=== PATIENT | female | born 1985 | race American Indian/Alaskan Native ===

== ENCOUNTER 2016-10-13 07:42 | Emergency (ER) | payer MEDICAID, OTHER ==
[2016-10-13 07:43] VITALS: BMI 26.3
[2016-10-13 07:57] VITALS: BP 120/73; PULSE 89; RESP 16; TEMP 98.7; O2SAT 100
[2016-10-13] MEDS ORDERED: Sodium Chloride 0.9% 1,000 ML IV STA (08:43)
--- NOTE | 2016-10-13 08:49 | ED PDOC ---
Arrival/HPI - General Chief Complaint: GI Problem Time Seen by Provider: 10/13/16 08:39 Historian: Patient - History of Present Illness Narrative History of Present Illness (Text): 10/13/16 08:38 Devin Solis is a 31 year old female, whose past medical history includes appendicitis and a , who presents to the emergency department complaining of diarrhea with associated cramping pain for 2 days and vomiting since this morning. 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 Patient endorses that she is an occasional drinker and smoker; her last menstrual cycle was the beginning of last month. Patient denies any other complaint at this time. PMD: none Time/Duration: < week (2 Days) Symptom Onset: Gradual Symptom Course: Unchanged Severity Level: Mild Activities at Onset: Light Context: Home Associated Symptoms (Text): 10/13/16 08:55 2 day history of mild crampy intermittent abdominal pain with multiple episodes of severe diarrhea. This morning she developed some nausea and vomiting. Sick contacts at work. No travel. No fever or chills. No genitourinary symptoms. Past Medical History - Provider Review Nursing Documentation Reviewed: Yes - Infectious Disease Hx of Infectious Diseases: None - Gastrointestinal Hx Hemorrhoids: Yes - Psychiatric Hx Substance Use: No - Surgical History Hx Appendectomy: Yes Hx Section: Yes - Anesthesia Hx Anesthesia: Yes Hx Anesthesia Reactions: No Hx Malignant Hyperthermia: No - Suicidal Assessment Feels Threatened In Home Enviroment: No Family/Social History - Physician Review Nursing Documentation Reviewed: Yes Family/Social History: No Known Family HX Smoking Status: Current Some Days Smoker Hx Alcohol Use: Yes Frequency of alcohol use: Socially Hx Substance Use: No Allergies/Home Meds Allergies/Adverse Reactions: Allergies No Known Allergies Allergy (Verified 10/13/16 07:57) Review of Systems - Physician Review All systems were reviewed & negative as marked: Yes - Review of Systems Constitutional: absent: Fevers, Night Sweats Eyes: absent: Vision Changes ENT: absent: Hearing Changes Respiratory: absent: SOB Cardiovascular: absent: Chest Pain Gastrointestinal: Abdominal Pain (Cramping Pain), Diarrhea, Vomiting Genitourinary Female: absent: Dysuria, Frequency, Hematuria, Urine Output Changes, Vaginal Bleeding, Vaginal Discharge Musculoskeletal: absent: Back Pain, Neck Pain Skin: absent: Rash Neurological: absent: Headache, Dizziness Endocrine: absent: Diaphoresis Hemo/Lymphatic: absent: Adenopathy Psychiatric: absent: Depression Physical Exam Vital Signs Reviewed: Yes Vital Signs Temp Pulse Resp BP Pulse Ox 10/13/16 07:52 98.7 F 89 16 120/73 100 Temperature: Afebrile Blood Pressure: Normal Pulse: Regular Respiratory Rate: Normal Appearance: Positive for: Well-Appearing, Non-Toxic, Comfortable Pain Distress: None Mental Status: Positive for: Alert and Oriented X 3 - Systems Exam Head: Present: Atraumatic, Normocephalic Pupils: Present: PERRL Extroacular Muscles: Present: EOMI Conjunctiva: Present: Normal Mouth: Present: Moist Mucous Membranes Pharnyx: No: ERYTHEMA, EXUDATE, TONSILS ENLARGED Neck: Present: Normal Range of Motion Respiratory/Chest: Present: Clear to Auscultation, Good Air Exchange. No: Respiratory Distress, Accessory Muscle Use Cardiovascular: Present: Regular Rate and Rhythm, Normal S1, S2. No: Murmurs Abdomen: Present: Normal Bowel Sounds. No: Tenderness, Distention, Peritoneal Signs, Rebound, Guarding Back: Present: Normal Inspection Upper Extremity: Present: Normal Inspection. No: Cyanosis, Edema Lower Extremity: Present: Normal Inspection. No: Edema Neurological: Present: GCS=15, CN II-XII Intact, Speech Normal, Motor Func Grossly Intact Skin: Present: Warm, Dry, Normal Color. No: Rashes Psychiatric: Present: Alert, Oriented x 3, Normal Insight, Normal Concentration Medical Decision Making ED Course and Treatment: 10/13/16 08:38 Impression: 31 year old female complaining of diarrhea with cramping pain for two days and vomiting since this morning. Plan: -- Urinalysis -- Labs -- Zofran, IV Fluids -- Reassess and disposition Prior Visits: Notes and results from previous visits were reviewed. Patient last seen in the ED on 05/17/15 for nausea, vomiting, and headache for 3-4 days. Patient was discharge home. Progress Notes: 10/13/16 09:41 Symptoms improved. - Lab Interpretations Lab Results: 10/13/16 08:59 10/13/16 08:59 Lab Results 10/13/16 08:59: WBC 9.3, RBC 5.12, Hgb 11.8 L, Hct 35.2 L, MCV 68.8 L, MCH 23.0 L, MCHC 33.5, RDW 16.0 H, Plt Count 288, MPV 10.8, Gran % 55.8, Lymph % (Auto) 34.9, [place] % (Auto) 7.6 H, Eos % (Auto) 1.5, Baso % (Auto) 0.2, Gran # 5.18, Lymph # 3.2, [place] # 0.7 H, Eos # 0.1, Baso # 0.02, Sodium 140, Potassium 3.7, Chloride 106, Carbon Dioxide 25, Anion Gap 13, BUN 15, Creatinine 0.8, Est GFR ( Amer) > 60, Est GFR (Non-Af Amer) > 60, Random Glucose 102, Calcium 8.8 , Total Bilirubin 0.5, AST 25, ALT 27, Alkaline Phosphatase 53, Total Protein 9.1 H, Albumin 4.3, Globulin 4.8, Albumin/Globulin Ratio 0.9 L, Lipase 117 10/13/16 08:52: Urine Color Yellow, Urine Appearance Sl cloudy, Urine pH 6.0, Ur Specific [place] >= 1.030, Urine Protein Trace H, Urine Glucose (UA) Negative , Urine Ketones Trace H, Urine Blood Moderate H, Urine Nitrate Negative, Urine Bilirubin Negative, Urine Urobilinogen 1.0 H, Ur Leukocyte Esterase Negative, Urine RBC 1 - 3, Urine WBC 0 - 2, Ur Epithelial Cells 1 - 3, Urine Bacteria Mod - Medication Orders Current Medication Orders: Sodium Chloride (Sodium Chloride 0.9%) 1,000 mls @ 1,000 mls/hr IV .Q1H STA Stop: 10/13/16 09:42 Last Admin: 10/13/16 09:12 Dose: 1,000 MLS/HR eMAR Start Stop Document 10/13/16 09:12 JOL (Rec: 10/13/16 09:12 JOL [id number]) Intravenous Solution Start Date 10/13/16 Start Time 09:12 End Date 10/13/16 End time 10:12 Total Infusion Time 60 Discontinued Medications Ondansetron HCl (Zofran Inj) 4 mg IVP STAT STA Stop: 10/13/16 08:44 Last Admin: 10/13/16 09:12 Dose: 4 MG IVP Administration Document 10/13/16 09:12 JOL (Rec: 10/13/16 09:12 NILAY [id number]) Charges for Administration # of IVP Administrations 1 - Scribe Statement The provider has reviewed the documentation as recorded by the Scribe Danielle Arrieta Provider Scribe Attestation: All medical record entries made by the Scribe were at my direction and personally dictated by me. I have reviewed the chart and agree that the record accurately reflects my personal performance of the history, physical exam, medical decision making, and the department course for this patient. I have also personally directed, reviewed, and agree with the discharge instructions and disposition. Disposition/Present on Arrival - Present on Arrival Any Indicators Present on Arrival: No History of DVT/PE: No History of Uncontrolled Diabetes: No Urinary Catheter: No History of Decub. Ulcer: No History Surgical Site Infection Following: None - Disposition Have Diagnosis and Disposition been Completed?: Yes Diagnosis: Gastroenteritis, Nausea vomiting and diarrhea Disposition: HOME/ ROUTINE Disposition Time: 09:42 Patient Plan: Discharge Condition: IMPROVED Discharge Instructions (ExitCare): Dehydration (ED), Gastroenteritis (ED), Acute Nausea and Vomiting (ED), Acute Diarrhea (ED) Additional Instructions: Clear liquids for 24 hours. Follow-up with PMD. Follow up in ER as needed. Symptomatic treatment.. Prescriptions: Ondansetron [Zofran Odt] 4 mg SL Q6 #20 odt Forms: WORK NOTE
[2016-10-13 08:58] LABS: URINE BILIRUBIN NEGATIVE (NEGATIVE); URINE BLOOD MODERATE (NEGATIVE); URINE GLUCOSE (UA) NEGATIVE (NEGATIVE); URINE KETONE TRACE mg/dL (NEGATIVE); URINE LEUKOCYTE ESTERASE NEGATIVE Leu/uL (NEGATIVE); URINE PROTEIN TRACE mg/dL (<30 mg/dL)
[2016-10-13 08:59] LABS: URINE APPEARANCE SL CLOUDY (CLEAR); URINE COLOR YELLOW (YELLOW)
[2016-10-13 09:00] LABS: ADD MANUAL DIFF? NO
[2016-10-13 09:04] LABS: BASO # 0.02 K/mm3 (0.0-2.0); BASO % 0.2 % (0.0-3.0); EOS # 0.1 (0.0-0.7); EOS % 1.5 % (1.5-5.0); GRAN # 5.18 (1.4-6.5); GRAN % 55.8 % (50.0-68.0); HEMATOCRIT 35.2 % (36.0-48.0); LYMPH # 3.2 (1.2-3.4); LYMPH % 34.9 % (22.0-35.0); MEAN CELL VOLUME 68.8 fL (80.0-105.0); MEAN CORPUSCULAR HGB CONC 33.5 g/dl (31.0-37.0); MEAN PLATELET VOLUME 10.8 fl (7.0-11.0); MONO # 0.7 (0.1-0.6); MONO % 7.6 % (1.0-6.0); PLATELET COUNT 288 10^3/uL (120.0-450.0); WHITE BLOOD COUNT 9.3 10^3/ul (4.5-11.0)
[2016-10-13 09:08] LABS: URINE WBC 0 - 2 /hpf (0-6)
[2016-10-13 09:09] LABS: URINE BACTERIA MOD (NEG)
[2016-10-13 09:14] LABS: ALB/GLOB RATIO 0.9 (1.1-1.8); ALKALINE PHOSPHATASE 53 U/L (38-133); ALT/SGPT 27 U/L (7-56); AST/SGOT 25 U/L (15-39); BILIRUBIN,TOTAL 0.5 mg/dL (0.2-1.3); BLOOD UREA NITROGEN 15 mg/dL (7-21); CALCIUM 8.8 mg/dL (8.4-10.5); CARBON DIOXIDE 25 mmol/L (21-33); CHLORIDE 106 mmol/L (98-107); GFR AFRICAN-AMERICAN > 60; GLUCOSE,RANDOM 102 mg/dL (70-110); LIPASE 117 U/L (23-300); POTASSIUM 3.7 mmol/L (3.6-5.0); SODIUM 140 mmol/L (132-148); TOTAL PROTEIN 9.1 g/dL (5.8-8.3)
== END 2016-10-13 10:01 | disposition home or self-care (01) ==
LOC: ED 07:42
DX: K52.9 Noninfective gastroenteritis and colitis, unspecified (principal)
CPT/HCPCS: 80053; 81001; 83690; 85025; 96361; 96374; 99283; J2405; J7040

== ENCOUNTER 2017-02-25 06:55 | Emergency (ER) | payer SELFPAY ==
[2017-02-25 07:02] VITALS: BMI 25.0
[2017-02-25 07:08] VITALS: BP 131/83; PULSE 89; RESP 17; TEMP 98.8; O2SAT 100
--- NOTE | 2017-02-25 07:32 | ED PDOC ---
Arrival/HPI - General Chief Complaint: Female Genitourinary Time Seen by Provider: 02/25/17 07:25 Historian: Patient - History of Present Illness Narrative History of Present Illness (Text): 02/25/17 07: A 31 year old female patient with no known past medical history, presents to the emergency department complaining of a left sided vaginal cyst she has had for the past few weeks. She states that the cyst started draining a few days ago. Patient notes that the pain has improved. Patient denies headache, dizziness, fevers, chills, chest pain, shortness of breath, cough, abdominal pain, nausea, vomiting, diarrhea, or any other complaint. Time/Duration: Other (Few Days) Symptom Onset: Sudden Symptom Course: Unchanged Activities at Onset: Rest, Light Context: Home Past Medical History - Provider Review Nursing Documentation Reviewed: Yes - Infectious Disease Hx of Infectious Diseases: None - Gastrointestinal Hx Hemorrhoids: Yes - Psychiatric Hx Substance Use: No - Surgical History Hx Appendectomy: Yes Hx Section: Yes - Anesthesia Hx Anesthesia: Yes Hx Anesthesia Reactions: No Hx Malignant Hyperthermia: No - Suicidal Assessment Feels Threatened In Home Enviroment: No Family/Social History - Physician Review Nursing Documentation Reviewed: Yes Family/Social History: Unknown Family HX Smoking Status: Current Some Days Smoker Hx Alcohol Use: Yes Hx Substance Use: No Allergies/Home Meds Allergies/Adverse Reactions: Allergies No Known Allergies Allergy (Verified 10/13/16 07:57) Physical Exam - Physical Exam Narrative Physical Exam (Text): - Review of Systems Constitutional: Normal. absent: Fatigue, Weight Change, Fevers Eyes: Normal ENT: Normal Respiratory: Normal absent: SOB, Cough, Sputum Cardiovascular: Normal absent: Chest pain, Palpitations, Syncope Gastrointestinal: Normal absent: Abdominal pain, Diarrhea, Nausea, Vomiting Genitourinary: (+) Left sided vaginal cyst. absent: Dysuria, Frequency, Hematuria Musculoskeletal: Normal. absent: Arthralgias, Back Pain, Neck Pain Skin: Normal Neurological: Normal absent: Focal Weakness Endocrine: Normal Hemo/Lymphatic: Normal Psychiatric: Normal - Physical exam Patient appears age appropriate, speaking full sentences without difficulty - Systems Exam Head: Present: Atraumatic, Normocephalic Pupils: Present: PERRL Extraocular Muscles: Present: EOMI Conjunctiva: Present: Normal Mouth: Present: Moist Mucous Membranes Neck: Present: Normal Range of Motion. No: MIDLINE TENDERNESS, Paraspinal Tenderness Respiratory/Chest: Present: Clear to Auscultation, Good Air Exchange. No: Respiratory Distress, Accessory Muscle Use, Tachypnic Cardiovascular: Present: Regular Rate and Rhythm, Normal S1, S2, Peripheral Pulses Present. No: Murmurs Abdomen: Present: Normal Bowel Sounds, No: Tenderness, Peritoneal Signs, Rebound, Guarding, Distention Genitourinary: Draining left bartholin cyst. No cellulitis in the surrounding region. Otherwise normal appearing external genitalia. Scribe Jyotsna present as female utility bagger. Back: Present: Normal Inspection. No: Midline Tenderness, Paraspinal Tenderness Upper Extremity: Present: Normal Inspection. No: Cyanosis, Edema Lower Extremity: Present: Normal Inspection. No: Edema Neurological: Present: GCS=15, Speech Normal, cranial nerves II through XII fully intact with no cerebellar abnormality, neuro-sensory fully intact. No focal neurological deficits. Skin: Present: Warm, Dry, Normal Color. No: Rashes Lymphatic: Present: OX3, NI, NC Psychiatric: Present: Alert, Oriented x 3, Normal Insight, Normal Concentration Vital Signs Reviewed: Yes Vital Signs Temp Pulse Resp BP Pulse Ox 02/25/17 07:04 98.8 F 89 17 131/83 100 Temperature: Afebrile Blood Pressure: Normal Pulse: Regular Respiratory Rate: Normal Appearance: Positive for: Well-Appearing, Non-Toxic, Comfortable Pain Distress: None Mental Status: Positive for: Alert and Oriented X 3 Medical Decision Making ED Course and Treatment: 02/25/17 07:28 Impression: A 31 year old female with a complaint of a left vaginal cyst. On exam, draining left bartholin cyst. Progress Notes: 7:26: Patient in no distress. Discussed patient options of I&D vs. sitz bath , and decided she will proceed with the less invasive measures. Instructed to f/u with DIRECTOR OF HEALTH CARE MARKETING and to return to the ER right away for new or worsening symptoms. Pt states she understands to return to the ER right away for new or worsening symptoms or for inability to f/u with PMD or specialist as instructed. Patient states that she fully agrees with and understands discharge instructions. States that she agrees with the plan and disposition. Verbalized and repeated discharge instructions and plan. I have given the patient opportunity to ask any additional questions. - Scribe Statement The provider has reviewed the documentation as recorded by the Scribe Jyotsna Montiel Provider Scribe Attestation: All medical record entries made by the Scribe were at my direction and personally dictated by me. I have reviewed the chart and agree that the record accurately reflects my personal performance of the history, physical exam, medical decision making, and the department course for this patient. I have also personally directed, reviewed, and agree with the discharge instructions and disposition. Disposition/Present on Arrival - Present on Arrival Any Indicators Present on Arrival: No History of DVT/PE: No History of Uncontrolled Diabetes: No Urinary Catheter: No History of Decub. Ulcer: No History Surgical Site Infection Following: None - Disposition Have Diagnosis and Disposition been Completed?: Yes Diagnosis: Bartholin cyst Disposition: HOME/ ROUTINE Disposition Time: 07:26 Patient Plan: Discharge Condition: GOOD Discharge Instructions (ExitCare): Bartholin Cyst (ED), Sitz Bath (GEN) Additional Instructions: PLEASE RETURN TO THE EMERGENCY DEPARTMENT FOR NEW OR WORSENING SYMPTOMS. RETURN RIGHT AWAY IF YOU CANNOT FOLLOW UP WITH YOUR PRIMARY CARE DOCTOR, CLINIC, OR SPECIALIST IN 1-2 DAYS. Prescriptions: Acetaminophen [Tylenol Extra Strength] 500 mg PO Q6 PRN #15 tablet PRN Reason: Pain, Moderate (4-7) Ibuprofen [Motrin] 600 mg PO Q8 PRN #12 tab PRN Reason: Pain, Moderate (4-7) Referrals: Piper Hoff MD [Staff Provider] - Follow up with primary Forms: [employer] (Nepali)
--- NOTE | 2017-02-25 07:36 | ED PDOC ---
Arrival/HPI - General Chief Complaint: Female Genitourinary Time Seen by Provider: 02/25/17 07:25 Historian: Patient - History of Present Illness Narrative History of Present Illness (Text): 02/25/17 07:16 A 31 year old female patient with no known past medical history, presents to the emergency department complaining of a left sided vaginal cyst she has had for the past few weeks. She states that the cyst started draining a few days ago. Patient notes that the pain has improved. Patient denies headache, dizziness, fevers, chills, chest pain, shortness of breath, cough, abdominal pain, nausea, vomiting, diarrhea, or any other complaint. Time/Duration: Other (Few Days) Symptom Onset: Sudden Symptom Course: Unchanged Activities at Onset: Rest, Light Context: Home Past Medical History - Provider Review Nursing Documentation Reviewed: Yes - Infectious Disease Hx of Infectious Diseases: None - Gastrointestinal Hx Hemorrhoids: Yes - Psychiatric Hx Substance Use: No - Surgical History Hx Appendectomy: Yes Hx Section: Yes - Anesthesia Hx Anesthesia: Yes Hx Anesthesia Reactions: No Hx Malignant Hyperthermia: No - Suicidal Assessment Feels Threatened In Home Enviroment: No Family/Social History - Physician Review Nursing Documentation Reviewed: Yes Family/Social History: No Known Family HX Smoking Status: Current Some Days Smoker Hx Alcohol Use: Yes Hx Substance Use: No Allergies/Home Meds Allergies/Adverse Reactions: Allergies No Known Allergies Allergy (Verified 10/13/16 07:57) Physical Exam - Physical Exam Narrative Physical Exam (Text): - Review of Systems Constitutional: Normal. absent: Fatigue, Weight Change, Fevers Eyes: Normal ENT: Normal Respiratory: Normal absent: SOB, Cough, Sputum Cardiovascular: Normal absent: Chest pain, Palpitations, Syncope Gastrointestinal: Normal absent: Abdominal pain, Diarrhea, Nausea, Vomiting Genitourinary: (+) Left sided vaginal cyst. absent: Dysuria, Frequency, Hematuria Musculoskeletal: Normal. absent: Arthralgias, Back Pain, Neck Pain Skin: Normal Neurological: Normal absent: Focal Weakness Endocrine: Normal Hemo/Lymphatic: Normal Psychiatric: Normal - Physical exam Patient appears age appropriate, speaking full sentences without difficulty - Systems Exam Head: Present: Atraumatic, Normocephalic Pupils: Present: PERRL Extraocular Muscles: Present: EOMI Conjunctiva: Present: Normal Mouth: Present: Moist Mucous Membranes Neck: Present: Normal Range of Motion. No: MIDLINE TENDERNESS, Paraspinal Tenderness Respiratory/Chest: Present: Clear to Auscultation, Good Air Exchange. No: Respiratory Distress, Accessory Muscle Use, Tachypnic Cardiovascular: Present: Regular Rate and Rhythm, Normal S1, S2, Peripheral Pulses Present. No: Murmurs Abdomen: Present: Normal Bowel Sounds, No: Tenderness, Peritoneal Signs, Rebound, Guarding, Distention Back: Present: Normal Inspection. No: Midline Tenderness, Paraspinal Tenderness Upper Extremity: Present: Normal Inspection. No: Cyanosis, Edema Lower Extremity: Present: Normal Inspection. No: Edema Neurological: Present: GCS=15, Speech Normal, cranial nerves II through XII fully intact with no cerebellar abnormality, neuro-sensory fully intact. No focal neurological deficits. Skin: Present: Warm, Dry, Normal Color. No: Rashes Lymphatic: Present: OX3, NI, NC Psychiatric: Present: Alert, Oriented x 3, Normal Insight, Normal Concentration Vital Signs Temp Pulse Resp BP Pulse Ox 02/25/17 07:04 98.8 F 89 17 131/83 100 Disposition/Present on Arrival - Present on Arrival History of DVT/PE: No History of Uncontrolled Diabetes: No Urinary Catheter: No History of Decub. Ulcer: No History Surgical Site Infection Following: None - Disposition Diagnosis: Bartholin cyst Disposition: HOME/ ROUTINE Condition: GOOD Discharge Instructions (ExitCare): Bartholin Cyst (ED), Sitz Bath (GEN) Additional Instructions: PLEASE RETURN TO THE EMERGENCY DEPARTMENT FOR NEW OR WORSENING SYMPTOMS. RETURN RIGHT AWAY IF YOU CANNOT FOLLOW UP WITH YOUR PRIMARY CARE DOCTOR, CLINIC, OR SPECIALIST IN 1-2 DAYS. Prescriptions: Acetaminophen [Tylenol Extra Strength] 500 mg PO Q6 PRN #15 tablet PRN Reason: Pain, Moderate (4-7) Ibuprofen [Motrin] 600 mg PO Q8 PRN #12 tab PRN Reason: Pain, Moderate (4-7) Referrals: Piper Hoff MD [Staff Provider] - Follow up with primary Forms: [employer] (Haitian)
== END 2017-02-25 07:38 | disposition home or self-care (01) ==
LOC: ED 06:55
DX: N75.0 Cyst of Bartholin's gland (principal)

== ENCOUNTER 2017-06-03 23:00 | Emergency (ER) | payer SELFPAY ==
[2017-06-03 23:01] VITALS: BMI 25.0
[2017-06-03 23:11] VITALS: O2SAT 100
[2017-06-03] MEDS ORDERED: Sodium Chloride 0.9% 1,000 ML IV STA (23:30)
[2017-06-03] MEDS ORDERED: Morphine 2 mg/ml ISec IVP STA (23:30)
--- NOTE | 2017-06-03 23:31 | ED PDOC ---
Arrival/HPI - General Chief Complaint: Abdominal Pain Time Seen by Provider: 06/03/17 23:05 Historian: Patient - History of Present Illness Narrative History of Present Illness (Text): 06/03/17 23:25 Devin Solis is a 31 year old female who presents to the Emergency department complaining of left lower abdominal pain after eating cheese steak 1 hour prior to arrival. Patient denies any fever, chills, chest pain, shortness of breath, nausea, vomiting, diarrhea, urinary symptoms, back pain, neck pain, headache, dizziness, or any other complaints.No Vaginal discharge/LMP- ~6 weeks ago. Time/Duration: 1 hour, Other (tonight) Symptom Onset: Gradual Symptom Course: Unchanged Activities at Onset: Light, Eating Context: Home Past Medical History - Provider Review Nursing Documentation Reviewed: Yes - Infectious Disease Hx of Infectious Diseases: None - Gastrointestinal Hx Hemorrhoids: Yes - Psychiatric Hx Substance Use: No - Surgical History Hx Appendectomy: Yes Hx Section: Yes - Anesthesia Hx Anesthesia: Yes Hx Anesthesia Reactions: No Hx Malignant Hyperthermia: No - Suicidal Assessment Feels Threatened In Home Enviroment: No Family/Social History - Physician Review Nursing Documentation Reviewed: Yes Family/Social History: Unknown Family HX Smoking Status: Never Smoked Hx Alcohol Use: Yes Frequency of alcohol use: Socially Hx Substance Use: No Allergies/Home Meds Allergies/Adverse Reactions: Allergies No Known Allergies Allergy (Verified 06/04/17 06:00) Home Medications: Home Meds Medication Instructions Recorded Confirmed No Known Home Med 06/03/17 06/04/17 Review of Systems - Physician Review All systems were reviewed & negative as marked: Yes - Review of Systems Constitutional: Normal. absent: Fevers Eyes: Normal ENT: Normal Respiratory: Normal. absent: SOB, Cough Cardiovascular: Normal. absent: Chest Pain Gastrointestinal: Abdominal Pain. absent: Diarrhea, Nausea, Vomiting Genitourinary Female: Normal. absent: Dysuria, Frequency, Hematuria, Urine Output Changes Musculoskeletal: Normal. absent: Back Pain, Neck Pain Skin: Normal. absent: Rash Neurological: Normal. absent: Headache, Dizziness Endocrine: Normal Hemo/Lymphatic: Normal Psychiatric: Normal Physical Exam Vital Signs Reviewed: Yes Vital Signs Temp Pulse Resp BP Pulse Ox 06/04/17 05:19 98.0 F 80 18 138/66 100 06/04/17 03:29 98.5 F 82 17 125/66 100 06/04/17 02:51 98.3 F 78 18 115/66 100 06/03/17 23:10 98.0 F 88 18 122/73 100 Temperature: Afebrile Blood Pressure: Normal Pulse: Regular Respiratory Rate: Normal Appearance: Positive for: Well-Appearing, Non-Toxic, Comfortable Pain Distress: None Mental Status: Positive for: Alert and Oriented X 3 - Systems Exam Head: Present: Atraumatic, Normocephalic Pupils: Present: PERRL Extroacular Muscles: Present: EOMI Conjunctiva: Present: Normal Mouth: Present: Moist Mucous Membranes Neck: Present: Normal Range of Motion Respiratory/Chest: Present: Clear to Auscultation, Good Air Exchange. No: Respiratory Distress, Accessory Muscle Use Cardiovascular: Present: Regular Rate and Rhythm, Normal S1, S2. No: Murmurs Abdomen: Present: Tenderness (LLQ abdominal tenderness), Normal Bowel Sounds. No: Distention, Peritoneal Signs Back: Present: Normal Inspection Upper Extremity: Present: Normal Inspection. No: Cyanosis, Edema Lower Extremity: Present: Normal Inspection. No: Edema Neurological: Present: GCS=15, CN II-XII Intact, Speech Normal Skin: Present: Warm, Dry, Normal Color. No: Rashes Psychiatric: Present: Alert, Oriented x 3, Normal Insight, Normal Concentration Medical Decision Making ED Course and Treatment: 06/03/17 23:25 Impression: 31 year old female complaining of left lower abdominal pain after eating 1 hour prior to arrival. Plan: -- Labs, lipase -- Urinalysis -- IV fluids -- Pepcid -- Reassess and disposition Prior Visits: Notes and results from previous visits were reviewed. On 02/25/2017, pt was seen in the Emergency department for left-sided vaginal cyst. Pt was d/c home. Progress Notes: 06/04/17 01:16 Positive , Beta-HCG, blood type and screen, Transvaginal US ordered. Pt reports she is G3 P:1 A:1 06/04/17 03:21 Transvaginal US shows: Gestation: No intrauterine gestational sac. Uterus/cervix: Endometrium: Up to 2.9 cm in thickness. Closed cervix. Ovaries: RIGHT ovary: Normal. LEFT ovary: Normal. 3.1 x 3.3 x 2.2 cm lesion within LEFT adnexal region. Free fluid: Small complex free fluid within pelvis. IMPRESSION: 1. No intrauterine gestation. DDX: Early IUP, missed , ectopic . 2. LEFT adnexal lesion, indeterminate. Ectopic not excluded. 3. Small complex free fluid, likely hemorrhage. 06/04/17 03:29 Case discussed with SG Norton cathodic protection technician, who is aware and agrees with plan. States pt can be transferred to [facility]. [facility] [place] ER paged. 06/04/17 03:[address] Timmons, ER attending at [facility], and SG Jiang cathodic protection technician at [facility]. Pt to be transferred to [facility]. Transfer (Adult): Based upon the information available at the time of transfer, the medical benefits reasonably expected from the provision of medical treatment at [facility] outweigh the increased risk to the patient for transfer from this facility. I have described the inherent risks and benefits of the transfer to the patient, and patient agrees to transfer. Further medical treatment to be provided at the receiving facility. At the time of transfer, copies of all medical records sent which related to the emergency condition for which the individual presented. These records include observations of signs or symptoms, preliminary clinical impression, treatment provided, results of any completed test and an informed written consent to the transfer. - Lab Interpretations Lab Results: 06/04/17 00:10 06/04/17 00:10 Lab Results 06/04/17 01:50: Blood Type Confirm A POSITIVE 06/04/17 01:31: Blood Type A POSITIVE, Antibody Screen Negative, BBK History Checked No verified bt 06/04/17 01:31: Beta HCG, Quant 1187.60 H 06/04/17 00:50: Urine Color Yellow, Urine Appearance Sl cloudy, Urine pH 6.0, Ur Specific [place] >= 1.030, Urine Protein Trace H, Urine Glucose (UA) Negative , Urine Ketones Trace H, Urine Blood Moderate H, Urine Nitrate Negative, Urine Bilirubin Negative, Urine Urobilinogen 1.0 H, Ur Leukocyte Esterase Negative, Urine RBC 1 - 3, Urine WBC 0 - 2, Ur Epithelial Cells 3 - 4, Urine Bacteria Occ , Urine HCG, Qual Positive 06/04/17 00:10: WBC 11.8 H D, RBC 4.84, Hgb 11.0 L, Hct 32.9 L, MCV 68.0 L, MCH 22.7 L, MCHC 33.4, RDW 16.5 H, Plt Count 267, MPV 10.3 06/04/17 00:10: Sodium 137, Potassium 3.6, Chloride 107, Carbon Dioxide 22, Anion Gap 12, BUN 16, Creatinine 0.7, Est GFR ( Amer) > 60, Est GFR (Non- Af Amer) > 60, Random Glucose 99, Calcium 9.4, Total Bilirubin 1.2, AST 30, ALT 29, Alkaline Phosphatase 48, Total Protein 8.3, Albumin 4.3, Globulin 4.1, Albumin/Globulin Ratio 1.1, Lipase 82 I have reviewed the lab results: Yes - RAD Interpretation Radiology Orders: 06/04/17 01:17 OB TRANSVAGINAL [US] Stat Spa Attendant: Radiologist - Medication Orders Current Medication Orders: Discontinued Medications Famotidine (Pepcid) 20 mg IVP STAT STA Stop: 06/03/17 23:31 Last Admin: 06/04/17 00:16 Dose: 20 mg IVP Administration Document 06/04/17 00:16 ALEKSEY (Rec: 06/04/17 00:16 ALEKSEY [id number]) Charges for Administration # of IVP Administrations 1 Sodium Chloride (Sodium Chloride 0.9%) 1,000 mls @ 999 mls/hr IV .Q1H1M STA Stop: 06/04/17 00:30 Last Admin: 06/04/17 00:16 Dose: 999 mls/hr eMAR Start Stop Document 06/04/17 00:16 ALEKSEY (Rec: 06/04/17 00:16 ALEKSEY [id number]) Intravenous Solution Start Date 06/04/17 Start Time 00:10 - Scribe Statement The provider has reviewed the documentation as recorded by the Ranjith Chiang Provider Scribe Attestation: All medical record entries made by the Scribgrayson were at my direction and personally dictated by me. I have reviewed the chart and agree that the record accurately reflects my personal performance of the history, physical exam, medical decision making, and the department course for this patient. I have also personally directed, reviewed, and agree with the discharge instructions and disposition. Disposition/Present on Arrival - Present on Arrival Any Indicators Present on Arrival: No History of DVT/PE: No History of Uncontrolled Diabetes: No Urinary Catheter: No History of Decub. Ulcer: No History Surgical Site Infection Following: None - Disposition Have Diagnosis and Disposition been Completed?: Yes Diagnosis: Abdominal pain, Ectopic Disposition: Transfer [facility] Disposition Time: 03:52 Condition: STABLE Referrals: Rosa Costello, [Primary Care Provider] - Follow up with primary Forms: giddy (Maori)
[2017-06-04 00:24] LABS: HEMATOCRIT 32.9 % (36.0-48.0); MEAN CORPUSCULAR HEMOGLOBIN 22.7 pg (25.0-35.0); MEAN CORPUSCULAR HGB CONC 33.4 g/dl (31.0-37.0); MEAN PLATELET VOLUME 10.3 fl (7.0-11.0); RED CELL DISTRIBUTION WIDTH 16.5 % (11.5-14.5); WHITE BLOOD COUNT 11.8 10^3/ul (4.5-11.0)
[2017-06-04 00:47] LABS: ALB/GLOB RATIO 1.1 (1.1-1.8); ALKALINE PHOSPHATASE 48 U/L (38-126); ALT/SGPT 29 U/L (7-56); AST/SGOT 30 U/L (14-36); BILIRUBIN,TOTAL 1.2 mg/dL (0.2-1.3); BLOOD UREA NITROGEN 16 mg/dL (7-21); CALCIUM 9.4 mg/dL (8.4-10.5); CARBON DIOXIDE 22 mmol/L (21-33); CHLORIDE 107 mmol/L (98-107); GFR AFRICAN-AMERICAN > 60; GLUCOSE,RANDOM 99 mg/dL (70-110); LIPASE 82 U/L (23-300); POTASSIUM 3.6 mmol/L (3.6-5.0); SODIUM 137 mmol/L (132-148); TOTAL PROTEIN 8.3 g/dL (5.8-8.3)
[2017-06-04 01:05] LABS: URINE BILIRUBIN NEGATIVE (NEGATIVE); URINE BLOOD MODERATE (NEGATIVE); URINE GLUCOSE (UA) NEGATIVE (NEGATIVE); URINE KETONE TRACE mg/dL (NEGATIVE); URINE LEUKOCYTE ESTERASE NEGATIVE Leu/uL (NEGATIVE); URINE PROTEIN TRACE mg/dL (<30 mg/dL)
[2017-06-04 01:07] LABS: URINE APPEARANCE SL CLOUDY (CLEAR); URINE COLOR YELLOW (YELLOW)
[2017-06-04 01:14] LABS: URINE BACTERIA OCC (NEG); URINE WBC 0 - 2 /hpf (0-6)
--- NOTE | 2017-06-04 03:12 | US ---
EXAM: US First Trimester, Transabdominal CLINICAL HISTORY: 31 years old, female; Pain; complicated by abdominal or pelvic pain; Lower; First trimester; Gestational age or lmp: Unknown TECHNIQUE: Real-time transabdominal obstetrical ultrasound of the maternal pelvis and a first trimester with image documentation. COMPARISON: No relevant prior studies available. FINDINGS: Gestation: No intrauterine gestational sac. Uterus/cervix: Endometrium: Up to 2.9 cm in thickness. Closed cervix. Ovaries: RIGHT ovary: Normal. LEFT ovary: Normal. 3.1 x 3.3 x 2.2 cm lesion within LEFT adnexal region. Free fluid: Small complex free fluid within pelvis. IMPRESSION: 1. No intrauterine gestation. DDX: Early IUP, missed , ectopic . 2. LEFT adnexal lesion, indeterminate. Ectopic not excluded. 3. Small complex free fluid, likely hemorrhage. EXAM: US , Transvaginal CLINICAL HISTORY: 31 years old, female; Pain; complicated by abdominal or pelvic pain; Lower; First trimester; Gestational age or lmp: Unknown TECHNIQUE: Real-time transvaginal obstetrical ultrasound of the maternal pelvis and a first trimester with image documentation. Transvaginal imaging was used for better evaluation of the fetus and adnexa. COMPARISON: No relevant prior studies available. FINDINGS: Gestation: No intrauterine gestational sac. Uterus/cervix: Endometrium: Up to 2.9 cm in thickness. Closed cervix. Ovaries: RIGHT ovary: Normal. LEFT ovary: Normal. 3.1 x 3.3 x 2.2 cm lesion within LEFT adnexal region. Free fluid: Small complex free fluid within pelvis.
[2017-06-04 05:20] VITALS: BP 138/66; PULSE 80; RESP 18; TEMP 98
== END 2017-06-04 05:32 | disposition short-term general hospital (02) ==
LOC: ED 23:00
DX: O00.90 Unspecified ectopic pregnancy without intrauterine pregnancy (principal); R10.30 Lower abdominal pain, unspecified
CPT/HCPCS: 76817; 80053; 81001; 83690; 84702; 84703; 85027; 86850; 86900; 96374; 99285; J7040